=== PATIENT | male | born 1985 | race Caucasian/White ===

== ENCOUNTER 2016-06-22 11:03 | Inpatient (IN) | payer OTHER ==
[~2016-06-22] VITALS: Ht 188 cm; Wt 109.1 kg
[2016-06-22 11:46] LABS: MEAN CORPUSCULAR HEMOGLOBIN 28.9 pg (27.0-33.0); MEAN CORPUSCULAR HGB CONC 35.4 g/dl (32.0-36.5); MEAN CORPUSCULAR VOLUME 81.6 fl (80.0-96.0); RED CELL DISTRIBUTION WIDTH 13.4 % (11.5-14.5); WHITE BLOOD COUNT 4.9 K/mm3 (4.0-10.0)
[2016-06-22 12:04] LABS: CONTROL LINE INT CTR LINE PRESENT; METHADONE URINE NEGATIVE (NEGATIVE); TRICYCLIC ANTIDEPRESS URINE NEGATIVE (NEGATIVE)
[2016-06-22 12:14] LABS: ALBUMIN 4.3 GM/DL (3.2-5.2); ALKALINE PHOSPHATASE 78 U/L (45-117); ALT/SGPT 30 U/L (12-78); ANION GAP 10 MEQ/L (8-16); AST/SGOT 22 U/L (15-37); BILIRUBIN,DIRECT 0.1 MG/DL (0.0-0.2); BILIRUBIN,TOTAL 0.6 MG/DL (0.2-1.0); BLOOD UREA NITROGEN 11 MG/DL (7-18); CALCIUM LEVEL 8.5 MG/DL (8.5-10.1); CARBON DIOXIDE LEVEL 26 MEQ/L (21-32); CHLORIDE LEVEL 105 MEQ/L (98-107); CREATININE FOR GFR 1.21 MG/DL (0.70-1.30); GLOMERULAR FILTRATION RATE > 60.0 (>60); GLUCOSE, FASTING 106 MG/DL (70-105); POTASSIUM SERUM 3.9 MEQ/L (3.5-5.1); SODIUM LEVEL 141 MEQ/L (136-145); TOTAL PROTEIN 7.6 GM/DL (6.4-8.2)
--- NOTE | 2016-06-22 15:31 | EDDOCDS ---
Nurse's Notes [facility] Name: Chidi Dawkins Age: 31 yrs Sex: Male : 1985 Arrival Date: 06/22/2016 Time: 11:03 Bed [facility] Private MD: TOM MILLER Diagnosis: Major depressive disorder, single episode Presentation: 06/22 11:06 Presenting complaint: Patient states: Suicidal and homicidal thoughts. Mental Health mlb1 Triage Level: Level 2: The patient displays active suicidal ideations. The patient displays active homicidal ideations. Adult Sepsis Screening: The patient does not have new or worsening altered mentation. Patient's respiratory rate is less than 22. Systolic blood pressure is greater than 100. Patient has a qSOFA score of 0- Negative Sepsis Screen. Mental Health Triage Level: Level 2:. Suicide/Homicide risk assessment- The patient admits to and/or has been reported to be having suicidal ideations. The patient admits to and/or has been reported to be having homicidal ideations. The patient reports that he/she has not been admitted to an inpatient mental health facility in the last 30 days. The patient reports that he/she does not have a recent or current history of substance abuse. The patient reports that he/she has no prior history of suicide attempt and/or organized plan. The patient reports that he/she has not experienced a significant life altering event in the last 30 days. The patient reports that he/she lacks adequate social support. Status: The patient is an active duty financial services intern. Transition of care: patient was not received from another setting of care. 11:06 Acuity: NAIF Level 3 mlb1 11:06 Method Of Arrival: Walkin/Carried/Asstd mlb1 Triage Assessment: 11:09 General: Appears in no apparent distress, Behavior is anxious, appropriate for age, mlb1 cooperative. Pain: Denies pain. Pt Declines HIV testing. Neurological: No deficits noted. Historical: - Allergies: Robitussin PE; - Home Meds: 1. none - PMHx: none; - PSHx: lymph node removal; right knee; - Social history: Smoking status: Patient states was never smoker of tobacco. No barriers to communication noted, The patient speaks fluent Swedish, Speaks appropriately for age. - Family history: Not pertinent. - : The pt / caregiver states he / she is not on anticoagulants. Home medication list is obtained from the patient. - Exposure Risk Screening:: None identified. Screenin:29 Screening information is obtained from the patient. Fall risk: No risks identified. me3 Assistance ADL's: requires no assistance with activities of daily living. Abuse/DV Screen: The patient / caregiver reports he/she is: not in a situation that causes fear, pain or injury. Nutritional screening: No deficits noted. Advance Directives: Currently, there is no health care proxy. There is no active DNR order. There is no living will. There is no Power of Analytical Sciences Director. home support is adequate. Assessment: 11:40 General: Appears comfortable, Behavior is cooperative, flat. Respiratory: No deficits me3 noted. Airway is patent Respiratory effort is even, unlabored. 12:28 General: Appears comfortable, Behavior is cooperative, flat. Respiratory: Airway is me3 patent Respiratory effort is even, unlabored. Derm: Skin is pink, warm & dry. 13:20 General: Appears in no apparent distress, comfortable, Behavior is appropriate for age, me3 cooperative. Respiratory: No deficits noted. Airway is patent Respiratory effort is even, unlabored. Derm: Skin is pink, warm & dry. 14:41 General: Appears in no apparent distress, comfortable, Behavior is appropriate for age, me3 cooperative. Respiratory: No deficits noted. Airway is patent Respiratory effort is even, unlabored. Derm: Skin is pink, warm & dry. 15:28 General: Appears in no apparent distress, comfortable, Behavior is cooperative, flat. me3 Respiratory: No deficits noted. Airway is patent Respiratory effort is even, unlabored. Derm: Skin is pink, warm & dry. Mental Health Eval: 11:49 Mental health consult is initiated at 11:49. Status: The patient is an active ca duty financial services intern. 12:33 Referral Information: Evaluation referral is generated by the patient himself / ca herself. The patient was referred for evaluation because Pt reports feeling out of control, overwhelmed, problems with anger, SI/HI. Subjective: The patients chief complaint is Pt says he has an overwhelming number of stressors that have been building up for years, but much worse now. Pt is concerned he may hurt someone and himself, so brought self in the be seen today.. Delusions are denied. Patient's mood is anxious, depressed, hopeless, Hallucinations are denied. Pt is active duty, been in the for 14 years. He has never been admitted to psychiatric unit and has not had psych services. He is not taking medication. Hx of several deployments to both [place] and [place], ending in 2009. He is and has 2 children. Pt says everything has been getting on his nerves to the pint where he feels like exploding and afraid he might harm someone. When asked whether he has a suicidal plan pt states "It is very easy to kill yourself." Pt suffers from insomnia, poor appetite, anxiety. Mental Health history: depression, sleep disturbance, Mental Health Admissions: None. Current Outpatient Mental Health Services: None. Current living environment is Family / Home Support: supportive environment The patient currently lives with his / her spouse, . Patient presents to Emergency Department with the following symptoms within the past 2 weeks: agitation, anger, anxiety, depressed mood, feelings of helplessness/hopelessness, marital problem, poor concentration, relational problem, sleep disturbance - insomnia, suicidal ideation with no plan. Substance abuse: Pt denies. Mental status exam: Patients appearance is appropriate, Patient's behavior is cooperative, Speech is normal. Affect is appropriate. Mood is anxious. depressed. irritable. Hallucinations are denied. Appetite is poor. Memory is fair. Energy level is normal. Content of thought is depressive Thought process is intact. Cognitive level is oriented to person, place, time and situation Patient's insight is fair. Judgement is fair. Rapport with interviewer is guarded. Suicidal Ideation is present with no specific plan. Homicidal ideation is present without a specific plan. Pt states HI toward people in general due to anger outbursts. Disposition: Medically cleared for disposition by Luis Enrique Robin MD Psychiatric Consult is performed by phone with Dr Moisés Salazar MD. [facility] Admission Criteria: The patient is experiencing suicidal ideation. The patient displays homicidal ideation. The patient displays symptoms of severe psychiatric disorder resulting in disordered behavior and significant interference with his / her ability to maintain self care. Severe Anxiety. The patient requires continuous observation and/or control to protect self, others or property. The patient's care requires a multi-modal treatment plan under close supervision and coordination due to the complexity and severity of the patient's symptoms. Legal Status: Patient's legal status will be Emergency admission: [place] Safe Act: [place] Safe Act is applicable to this patient. The patient poses a risk to self or other and the Nursing Department Clinician has been notified. He/She will enter the patient's data. DSM-V Differential Diagnosis: Unspecified Depressive Disorder (F32.9). Insurance Pre-Certification: Not Required, Pt has . Awaiting: transfer to [facility]. Vital Signs: 11:05 BP 153 / 97; Pulse 74; Resp 16; Temp 97.1(O); Pulse Ox 97% ; Weight 109.32 kg (R); cmb Height 74 in. (187.96 cm) (R); Pain 0/10; 15:30 BP 138 / 86; Pulse 60; Resp 16; Temp 98; Pulse Ox 98% ; me3 11:05 Body Mass Index 30.94 (109.32 kg, 187.96 cm) cmb Vitals: 11:05 Log In Time: June 22, 2016 at 11:03. RN notified that patient meets Red Flag cmb criteria. ED Course: 11:04 Patient visited by Keri Edmonds. cmb 11:04 Patient moved to Waiting cmb 11:05 [facility], TOM ADAN is Private Physician. cmb 11:06 Patient visited by Jon Macdonald, ROYAL. mlb1 11:07 Triage Initiated mlb1 11:09 Patient visited by Jon Macdonald, ROYAL. mlb1 11:09 Patient moved to [facility] mlb1 11:13 Luis Enrique Robin MD is Attending Physician. br1 11:22 Patient visited by Hany Hatch Security Aide. pjf 11:22 Pt greeted and oriented to ED. Patient advised of names of staff involved in care, pjf location of call matos, wait times and NPO status. Patient has correct armband on for positive identification. Placed in psych safe attire. Bed in low position. Call light in reach. Side rails up X 1. Security observing. Property removed, secured in belongings bag- Placed in locker #3. Door closed. Noise minimized. Visitors limited. Report received from rn - psych. triage level #2, +si / +hi, cooperative \\T\\ this time. The patient / caregiver is instructed regarding the plan of care and ED course. Psych Safety Check: Location:. 11:31 Patient visited by Hany Hatch Security Aide. pjf 11:39 Nury Blackmon LPN is Primary Nurse. me3 11:39 Acetaminophen Level Sent. me3 11:39 Basic Metabolic Profile Sent. me3 11:39 Complete Blood Count Sent. me3 11:39 Drug Eval Toxicology ED Only Sent. me3 11:39 Ethyl Alcohol (ethanol) Sent. me3 11:39 Liver Profile Sent. me3 11:39 Salicylate Level Sent. me3 11:40 Thyroid Stimulating Hormone Sent. me3 11:40 Labs drawn. (by ED staff). Sent per order to lab. Urine collected. Clean catch me3 specimen. Urine specimen sent to lab. 11:42 Patient visited by Hany Hatch Security Aide. pjf 11:57 Patient visited by Hany Hatch Security Aide. pjf 12:04 Patient visited by Luis Enrique Robin MD. br1 12:27 Patient visited by Nury Blackmon LPN. me3 12:43 [facility] Payment Agreement was scanned into [employer] and attached to record. lg 12:47 Patient visited by Hany Hatch Security Aide. pjf 13:02 Moisés Salazar MD is Hospitalizing Provider. br1 13:04 Patient visited by Hany Hatch Security Aide. pjf 13:15 Patient visited by Hany Hatch Security Aide. pjf 13:19 E Legal paperwork was scanned into [employer] and attached to record. ml4 13:20 Diet tray given. Warm blanket given. Pillow given. me3 13:37 Patient visited by Hany Hatch Security Aide. pjf 13:50 Patient visited by Hany Hatch Security Aide. pjf 14:44 Patient visited by Hany Hatch Security Aide. pjf 15:13 Patient visited by Hany Hatch Security Aide. pjf 15:29 No IV's were initiated during this patient's visit. No procedures done that require me3 assistance. Attachments: 13:19 E Legal paperwork ml4 Order Results: Lab Order: Acetaminophen Level; SPEC'M 06/22/16 11:36 Test: ACETAMINOPHEN LEVEL; Value: < 2.0; Range: 10.0-30.0; Abnormal: Below low normal; Units: UG/ML; Status: F Lab Order: Basic Metabolic Profile; SPEC'M 06/22/16 11:36 Test: GLUCOSE, FASTING; Value: 106; Range: 70-105; Abnormal: Above high normal; Units: MG/DL; Status: F Test: BLOOD UREA NITROGEN; Value: 11; Range: 7-18; Units: MG/DL; Status: F Test: CREATININE FOR GFR; Value: 1.21; Range: 0.70-1.30; Units: MG/DL; Status: F Test: GLOMERULAR FILTRATION RATE; Value: > 60.0; Range: >60; Status: F Test: SODIUM LEVEL; Value: 141; Range: 136-145; Units: MEQ/L; Status: F Test: POTASSIUM SERUM; Value: 3.9; Range: 3.5-5.1; Units: MEQ/L; Status: F Test: CHLORIDE LEVEL; Value: 105; Range: 98-107; Units: MEQ/L; Status: F Test: CARBON DIOXIDE LEVEL; Value: 26; Range: 21-32; Units: MEQ/L; Status: F Test: ANION GAP; Value: 10; Range: 8-16; Units: MEQ/L; Status: F Test: CALCIUM LEVEL; Value: 8.5; Range: 8.5-10.1; Units: MG/DL; Status: F Test Note: ; Units are mL/min/1.73 m2 Chronic Kidney Disease Staging per NKF: Stage I & II GFR >=60 Normal to Mildly Decreased Stage III GFR 30-59 Moderately Decreased Stage IV GFR 15-29 Severely Decreased Stage V GFR <15 Very Little GFR Left ESRD GFR <15 on HIDE TANNER Lab Order: Complete Blood Count; SPEC'M 06/22/16 11:36 Test: WHITE BLOOD COUNT; Value: 4.9; Range: 4.0-10.0; Units: K/mm3; Status: F Test: RED BLOOD COUNT; Value: 5.88; Range: 4.30-6.10; Units: M/mm3; Status: F Test: HEMOGLOBIN; Value: 17.0; Range: 14.0-18.0; Units: g/dl; Status: F Test: HEMATOCRIT; Value: 48.0; Range: 42.0-52.0; Units: %; Status: F Test: MEAN CORPUSCULAR VOLUME; Value: 81.6; Range: 80.0-96.0; Units: fl; Status: F Test: MEAN CORPUSCULAR HEMOGLOBIN; Value: 28.9; Range: 27.0-33.0; Units: pg; Status: F Test: MEAN CORPUSCULAR HGB CONC; Value: 35.4; Range: 32.0-36.5; Units: g/dl; Status: F Test: RED CELL DISTRIBUTION WIDTH; Value: 13.4; Range: 11.5-14.5; Units: %; Status: F Test: PLATELET COUNT, AUTOMATED; Value: 215; Range: 150-450; Units: k/mm3; Status: F Lab Order: Drug Eval Toxicology ED Only; SPEC'M 06/22/16 11:37 Test: AMPHETAMINES LEVEL URINE; Value: NEGATIVE; Range: NEGATIVE; Status: F Test: BARBITURATES URINE; Value: NEGATIVE; Range: NEGATIVE; Status: F Test: BENZODIAZEPINES URINE; Value: NEGATIVE; Range: NEGATIVE; Status: F Test: CANNABINOIDS URINE; Value: NEGATIVE; Range: NEGATIVE; Status: F Test: COCAINE METABOLITE URINE; Value: NEGATIVE; Range: NEGATIVE; Status: F Test: METHADONE URINE; Value: NEGATIVE; Range: NEGATIVE; Status: F Test: OPIATES URINE; Value: NEGATIVE; Range: NEGATIVE; Status: F Test: TRICYCLIC ANTIDEPRESS URINE; Value: NEGATIVE; Range: NEGATIVE; Status: F Test Note: ; ALL PRESUMPTIVE POSITIVE FINDINGS ARE UNCONFIRMED NORMAL VALUES THRESHOLD IN NG/ML AMPHETAMINES 1000 METHAMPHETAMINES 1000 BARBITURATES 300 BENZODIAZEPINES 300 CANNABINOIDS (THC) 50 COCAINE METABOLITE 300 METHADONE 300 OPIATES 300 PHENCYCLIDINE 25 TRICYCLIC ANTIDEPRESSANTS 1000 RESULTS ARE FOR MEDICAL PURPOSES ONLY. ALL URINE SPECIMENS WILL BE SAVED FOR 3 DAYS. IF CONFIRMATION OF A PRESUMPTIVE POSTIVE SCREEN RESULT IS DESIRED, CALL CHEMISTRY ([phone]) AND REQUEST URINE TO BE SENT TO REFERENCE LAB. FOR A LIST OF CLOSELY RELATED COMPOUNDS PLEASE CALL THE LAB. Lab Order: Ethyl Alcohol (ethanol); SPEC'M 06/22/16 11:36 Test: ETHYL ALCOHOL (ETHANOL); Value: < 0.003; Range: 0.000-0.010; Units: %; Status: F Lab Order: Liver Profile; SPEC'M 06/22/16 11:36 Test: AST/SGOT; Value: 22; Range: 15-37; Units: U/L; Status: F Test: ALT/SGPT; Value: 30; Range: 12-78; Units: U/L; Status: F Test: ALKALINE PHOSPHATASE; Value: 78; Range: 45-117; Units: U/L; Status: F Test: BILIRUBIN,TOTAL; Value: 0.6; Range: 0.2-1.0; Units: MG/DL; Status: F Test: BILIRUBIN,DIRECT; Value: 0.1; Range: 0.0-0.2; Units: MG/DL; Status: F Test: TOTAL PROTEIN; Value: 7.6; Range: 6.4-8.2; Units: GM/DL; Status: F Test: ALBUMIN; Value: 4.3; Range: 3.2-5.2; Units: GM/DL; Status: F Test: ALBUMIN/GLOBULIN RATIO; Value: 1.30; Range: 1.00-1.93; Status: F Lab Order: Salicylate Level; SPEC'M 06/22/16 11:36 Test: SALICYLATE LEVEL; Value: < 1.7; Range: 5.0-30.0; Abnormal: Below low normal; Units: MG/DL; Status: F Lab Order: Thyroid Stimulating Hormone; SPEC'M 06/22/16 11:36 Test: THYROID STIMULATING HORMONE; Value: 1.680; Range: 0.358-3.740; Units: uIU/ML; Status: F Outcome: 13:03 Decision to Hospitalize by Provider. br1 15:29 Discharge Assessment: patient administered narcotics - no. The following High Risk me3 Discharge criteria are identified: None. Admitted to Psych accompanied by tech, via wheelchair, with chart. Condition: stable. No special radiology studies were completed. Property :Personal belongings accompany Pt. 15:30 Patient left the ED. me3 Signatures: Leann Hutton, PSA PSA ca Sadiq Braxton, Reg Reg lg Hany Hatch, Security Aide GissellepJon Landeros RN RN mlb1 Nury Blackmon,GROUNDWATER PROGRAMS DIRECTOR GROUNDWATER PROGRAMS DIRECTOR me3 Cinda Ken, PSA PSA ml4 Luis Enrique Robin MD MD br1 Keri Edmonds HARID
--- NOTE | 2016-06-22 15:31 | EDDOCDS ---
Physician Documentation [facility] Name: Chidi Dawkins Age: 31 yrs Sex: Male : 1985 Arrival Date: 06/22/2016 Time: 11:03 Bed [facility] Private MD: MITOM FORD Disposition: 06/22/16 13:03 Hospitalization ordered by Moisés Salazar for Inpatient Admission. Preliminary diagnosis is Major depressive disorder, single episode. - Bed requested for Admit. - Status is Inpatient Admission. me3 - Condition is Stable. - Problem is new. - Symptoms are unchanged. Historical: - Allergies: Robitussin PE; - Home Meds: 1. none - PMHx: none; - PSHx: lymph node removal; right knee; - Social history: Smoking status: Patient states was never smoker of tobacco. No barriers to communication noted, The patient speaks fluent Frisian, Speaks appropriately for age. - Family history: Not pertinent. - : The pt / caregiver states he / she is not on anticoagulants. Home medication list is obtained from the patient. - Exposure Risk Screening:: None identified. Vital Signs: 06/22 11:05 BP 153 / 97; Pulse 74; Resp 16; Temp 97.1(O); Pulse Ox 97% ; Weight 109.32 kg / 241.01 cmb lbs (R); Height 74 in. (187.96 cm) (R); Pain 0/10; 15:30 BP 138 / 86; Pulse 60; Resp 16; Temp 98; Pulse Ox 98% ; me3 11:05 Body Mass Index 30.94 (109.32 kg, 187.96 cm) cmb MDM: 11:13 Consult PFS/PSA/Data Compiler ordered. br1 11:13 Consult PFS/PSA/Data Compiler: Patient's case requires discussion with on-call br1 Psychiatrist ordered. 11:13 PSA/PFS to call Nursing Surface Ship Usw Supervisor, to enter patient data on [place] Safe Act if patient br1 involuntarily admitted or transferred for SI or HI ordered. 11:13 Confirm accurate psychiatric medication list and times of last dosage ordered. br1 11:13 Detain Pt Until Medically/PFS Cleared ordered. br1 11:14 Acetaminophen Level Ordered. EDMS 11:14 Basic Metabolic Profile Ordered. EDMS 11:14 Complete Blood Count Ordered. EDMS 11:14 Drug Eval Toxicology ED Only Ordered. EDMS 11:14 Ethyl Alcohol (ethanol) Ordered. EDMS 11:14 Liver Profile Ordered. EDMS 11:14 Salicylate Level Ordered. EDMS 11:14 Thyroid Stimulating Hormone Ordered. EDMS 11:43 REGULAR DIET PLASTIC CHAMORRO+DIET ordered. EDMS 12:22 Consult PFS/PSA/Data Compiler complete. ca 12:22 Consult PFS/PSA/Data Compiler: Patient's case requires discussion with on-call ca Psychiatrist complete. 12:22 PSA/PFS to call Nursing Surface Ship Usw Supervisor, to enter patient data [place] Safe [place] if patient ca involuntarily admitted or transferred for SI or HI complete. 12:38 Financial registration complete. lg 12:43 [facility] Payment Agreement was scanned into [employer] and attached to record. lg 12:59 BED REQUEST+ADM ordered. EDMS 13:01 Acetaminophen Level Reviewed. br1 13:01 Basic Metabolic Profile Reviewed. br1 13:01 Salicylate Level Reviewed. br1 13:01 Complete Blood Count Reviewed. br1 13:01 Drug Eval Toxicology ED Only Reviewed. br1 13:01 Ethyl Alcohol (ethanol) Reviewed. br1 13:01 Liver Profile Reviewed. br1 13:01 Thyroid Stimulating Hormone Reviewed. br1 13:02 Consult PFS/PSA/Socail Worker: Cleared medically for eval ordered. br1 13:08 Consult PFS/PSA/Socail Worker: Cleared medically for eval complete. me3 13:09 Admit to [facility]: ordered. EDMS 13:10 REGULAR DIET ordered. EDMS 13:19 [facility] Legal paperwork was scanned into [employer] and attached to record. ml4 Signatures: Dispatcher [employer] EDMS Leann Hutton, PSA PSA ca Sadiq Braxton, Reg Reg lg Jon Macdonald RN RN mlb1 Nury Blackmon,KNITTING MACHINE MECHANIC KNITTING MACHINE MECHANIC me3 Cinda Ken, PSA PSA ml4 Luis Enrique Robin MD MD br1 The chart was reviewed and I authenticate all verbal orders and agree with the evaluation and treatment provided.Attachments: 12:43 [facility] Payment Agreement lg MTDD
[2016-06-22 15:59] VITALS: BP 134/84
[2016-06-22] MEDS ORDERED: MAALOX 30 ML SUSP *UDC PO PRN (21:30)
[2016-06-22] MEDS ORDERED: ACETAMINOPHEN TAB 650MG DOSE (2X325MG) PO PRN (21:30)
[2016-06-22] MEDS ORDERED: traZODone 50 MG TAB PO PRN (21:30)
[2016-06-22] MEDS ORDERED: MOM 30ML SUSPENSION UDC PO PRN (21:30)
[2016-06-23 06:44] VITALS: BP 145/65
--- NOTE | 2016-06-23 14:46 | HPEPDOC ---
[facility] History & Physical History and Physical DATE OF ADMISSION: Jun 22, 2016 at 15:40 CHIEF COMPLAINT: SI and HI to no one in particular. 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 Patient reports stressors involving the move and issues associated with his move from his previous base in [place] to his current assignment on [facility]. Patient reports in particular the financial costs of the move were unexpected and he and his "bleed through our savings". Patient reports also the was slow in setting his family up with [facility] care/medical care. Patient reports his expressed discord with the will ultimately get him kicked out of the . Patient also reports recurrent vertigo. He reports being diagnosed with Meniere' s and was instructed to discuss his vertigo symptoms with the unit PA. Patient acknowledged understanding. On interview, patient is noticeably depressed. He reports significant anxiety. Patient reports fair sleep and appetite. He reports his vertigo keeps him isolated to his room. He initially declined initiation of an antidepressant, but is amenable to discussing antidepressant therapy with his provider starting tomorrow. Patient denies current SI/HI and AH/VH. PAST PSYCHIATRIC HISTORY: Prior Psychiatric Disorder: Anxiety and depression Outpatient Treatment: [facility]. Suicidal/Self injurious: Denies any hx of suicidal behaviors. Psychotropic Medication History: naive ALLERGIES: ETHANOL, GUAIFENESIN. SOCIAL HISTORY: He is a soldier currently stationed at [employer]. He has two children. Ethyl alcohol (EtOH) none. Smokes none. Recreational drug use none. PAST MEDICAL HISTORY: He has had an extensive workup in [facility] for vertigo. He has seen neurology, it software engineer, otolaryngology (ENT). He has had numerous kinds of tests. He gets vertigo and he gets the feeling that the room is still spinning and his eyes are not catching up. He currently has a referral in process for second opinion ENT in this area. He is not sure if it will be for local or [place]. Other than that he had no medical issues. PAST SURGICAL HISTORY: 1. Lymph node removal. 2. Repair of meniscus right knee. HOME MEDICATIONS: None. VITALS: SEE BELOW. LABS: SEE BELOW. MENTAL STATUS EXAMINATION: Patient is a 31yo male, who is in mod distress due to reported vertigo symptoms , he though is cooperative and engaged in the interview, well kempt, mod build. Speech: [normal] in rate, volume, and articulation, and is [coherent] and [ spontaneous]. Language skills are [intact]. Thought processes: [Clear/Goal directed]. Thought content: [logical]. Description of abnormal or psychotic thoughts: [No hallucinations, delusions, preoccupation with violence, no current homicidal or suicidal ideation, or obsessions]. Judgment: [fair]. Insight:fair. Orientation to [time, place and person]. Recent and remote memory: [intact] Attention span and concentration: good. Language: [Normal]. Fund of knowledge: good]. Mood: dysthymic Affect: dysthymic PROBLEM LIST: 1. Depresison 2. Anxiety 3. SI And HI ASSESSMENT: [Depressive d/o, unspecified] INITIAL TREATMENT PLAN: 1. Patient was admitted on a [9.39] legal status. 2. Complete history was obtained. 3. With patients permission, family will be contacted and database will be expanded. 4. Patient currently declines initiation of an antidepressant, but is open to discussing with his provider starting tomorrow. 5. Patient will be provided with protected environment. 6. Patient will be treated with individual, group, and milieu therapies. 7. Patient will receive supportive psych-education. 8. Discharge planning will commence immediately. 9. Outpatient follow-up treatment will be strongly recommended. ESTIMATED LENGTH OF STAY: [3]-[5] DAYS. TIME SPENT COUNSELING AND COORDINATING INITIAL CARE: [60] minutes. Medications No Active Prescriptions or Reported Meds Allergies Coded Allergies: Ethanol (Unverified Allergy, Unknown, HIVES, 06/22/16) Guaifenesin (Unverified Allergy, Unknown, HIVES, 06/22/16) JONNIE DOYLE MD Jun 23, 2016 14:46 JONNIE DOYLE MD Jun 23, 2016 14:46
[2016-06-23 18:00] VITALS: BP 146/88
--- NOTE | 2016-06-24 03:31 | HPE ---
DATE OF ADMISSION: 06/22/2016 HISTORY OF PRESENT ILLNESS: Please refer to psychiatric history and evaluation for further details on this admission. This examination and history is intended for medical issues, which may need treatment, followup or consult on this 31-year-old male. ALLERGIES: ETHANOL, GUAIFENESIN. 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 Ethyl alcohol (EtOH) none. Smokes none. Recreational drug use none. PAST MEDICAL HISTORY: He has had an extensive workup in [facility] for vertigo. He has seen neurology, circular saw filer, otolaryngology (ENT). He has had numerous kinds of tests. He gets vertigo and he gets the feeling that the room is still spinning and his eyes are not catching up. He currently has a referral in process for second opinion ENT in this area. He is not sure if it will be for local or [place]. Other than that he had no medical issues. PAST SURGICAL HISTORY: 1. Lymph node removal. 2. Repair of meniscus right knee. HOME MEDICATIONS: None. LABORATORY STUDIES: CBC was normal. Electrolytes were normal. BUN and creatinine were 11 and 1.21. Toxicology screen was negative. REVIEW OF SYSTEMS: 10-system review was unremarkable other than his vertigo problem for which he has been on numerous medications with no improvement. OBJECTIVE: 31-year-old cooperative male in no acute distress. Height 74 inches, weight 109 kg, body mass index (BMI) 30.9. Blood pressure 140/60, pulse 52, respirations 18, temperature 96.5. Pupils equal and react to light. Extraocular muscles intact. Cornea and sclerae clear. Conjunctivae were normal. No facial asymmetry. Pharynx, tongue and gums pink and moist. Tongue is midline. Neck is supple without lymphadenopathy. No thyromegaly, no goiter. Carotids 2+ without bruit. Chest clear to auscultation without wheeze or retraction. Heart is regular. Abdomen is benign. Bowel sounds positive. Genitourinary/rectal: Not done. Extremities: No cyanosis, clubbing or edema. Gait steady. Negative Romberg. Cranial nerves III-XII grossly intact. IMPRESSION/PLAN: 1. Psychiatric plan per psychiatry. 2. Further workup for vertigo, has been referred for ENT as an outpatient. No other acute medical issues.
[2016-06-24 06:40] VITALS: BP 142/79
--- NOTE | 2016-06-24 16:31 | EDDOCDS ---
Physician Documentation [facility] Name: Chidi Dawkins Age: 31 yrs Sex: Male : 1985 Arrival Date: 06/22/2016 Time: 11:03 Bed [facility] Private MD: WYTOM FORD Disposition: 06/22/16 13:03 Hospitalization ordered by Moisés Salazar for Inpatient Admission. Preliminary diagnosis is Major depressive disorder, single episode. - Bed requested for Admit. - Status is Inpatient Admission. me3 - Condition is Stable. - Problem is new. - Symptoms are unchanged. Historical: - Allergies: Robitussin PE; - Home Meds: 1. none - PMHx: none; - PSHx: lymph node removal; right knee; - Social history: Smoking status: Patient states was never smoker of tobacco. No barriers to communication noted, The patient speaks fluent Latvian, Speaks appropriately for age. - Family history: Not pertinent. - : The pt / caregiver states he / she is not on anticoagulants. Home medication list is obtained from the patient. - Exposure Risk Screening:: None identified. Vital Signs: 06/22 11:05 BP 153 / 97; Pulse 74; Resp 16; Temp 97.1(O); Pulse Ox 97% ; Weight 109.32 kg / 241.01 cmb lbs (R); Height 74 in. (187.96 cm) (R); Pain 0/10; 15:30 BP 138 / 86; Pulse 60; Resp 16; Temp 98; Pulse Ox 98% ; me3 11:05 Body Mass Index 30.94 (109.32 kg, 187.96 cm) cmb MDM: 11:13 Consult PFS/PSA/Labor Conciliator ordered. br1 11:13 Consult PFS/PSA/Labor Conciliator: Patient's case requires discussion with on-call br1 Psychiatrist ordered. 11:13 PSA/PFS to call Nursing Mri Special Procedures Technologist, to enter patient data on [place] Safe [place] if patient br1 involuntarily admitted or transferred for SI or HI ordered. 11:13 Confirm accurate psychiatric medication list and times of last dosage ordered. br1 11:13 Detain Pt Until Medically/PFS Cleared ordered. br1 11:14 Acetaminophen Level Ordered. EDMS 11:14 Basic Metabolic Profile Ordered. EDMS 11:14 Complete Blood Count Ordered. EDMS 11:14 Drug Eval Toxicology ED Only Ordered. EDMS 11:14 Ethyl Alcohol (ethanol) Ordered. EDMS 11:14 Liver Profile Ordered. EDMS 11:14 Salicylate Level Ordered. EDMS 11:14 Thyroid Stimulating Hormone Ordered. EDMS 11:43 REGULAR DIET PLASTIC CHAMORRO+DIET ordered. EDMS 12:22 Consult PFS/PSA/Labor Conciliator complete. ca 12:22 Consult PFS/PSA/Labor Conciliator: Patient's case requires discussion with on-call ca Psychiatrist complete. 12:22 PSA/PFS to call Nursing Mri Special Procedures Technologist, to enter patient data [place] if patient ca involuntarily admitted or transferred for SI or HI complete. 12:38 Financial registration complete. lg 12:43 [facility] Payment Agreement was scanned into [employer] and attached to record. lg 12:59 BED REQUEST+ADM ordered. EDMS 13:01 Acetaminophen Level Reviewed. br1 13:01 Basic Metabolic Profile Reviewed. br1 13:01 Salicylate Level Reviewed. br1 13:01 Complete Blood Count Reviewed. br1 13:01 Drug Eval Toxicology ED Only Reviewed. br1 13:01 Ethyl Alcohol (ethanol) Reviewed. br1 13:01 Liver Profile Reviewed. br1 13:01 Thyroid Stimulating Hormone Reviewed. br1 13:02 Consult PFS/PSA/Socail Worker: Cleared medically for eval ordered. br1 13:08 Consult PFS/PSA/Socail Worker: Cleared medically for eval complete. me3 13:09 Admit to [facility]: ordered. EDMS 13:10 REGULAR DIET ordered. EDMS 13:19 [facility] Legal paperwork was scanned into [employer] and attached to record. ml4 17:16 T-Sheet-- Draft Copy was scanned into [employer] and attached to record. klr Signatures: Dispatcher [employer] EDMS Brennen, Leann, PSA PSA ca Sadiq Braxton, Reg Reg lg Jon Macdonald RN RN mlb1 Nury Blackmon LPN GENERAL SURGEON me3 Cinda Ken, PSA PSA ml4 Luis Enrique Robin MD MD br1 Nini Tser The chart was reviewed and I authenticate all verbal orders and agree with the evaluation and treatment provided.Attachments: 12:43 [facility] Payment Agreement lg 17:16 T-Sheet-- Draft Copy klr Chart Complete MTDD
--- NOTE | 2016-06-24 16:31 | EDDOCDS ---
Physician Documentation [facility] Name: Chidi Dawkins Age: 31 yrs Sex: Male : 1985 Arrival Date: 06/22/2016 Time: 11:03 Bed [facility] Private MD: NMTOM FORD Disposition: 06/22/16 13:03 Hospitalization ordered by Moisés Salazar for Inpatient Admission. Preliminary diagnosis is Major depressive disorder, single episode. - Bed requested for Admit. - Status is Inpatient Admission. me3 - Condition is Stable. - Problem is new. - Symptoms are unchanged. Historical: - Allergies: Robitussin PE; - Home Meds: 1. none - PMHx: none; - PSHx: lymph node removal; right knee; - Social history: Smoking status: Patient states was never smoker of tobacco. No barriers to communication noted, The patient speaks fluent Polish, Speaks appropriately for age. - Family history: Not pertinent. - : The pt / caregiver states he / she is not on anticoagulants. Home medication list is obtained from the patient. - Exposure Risk Screening:: None identified. Vital Signs: 06/22 11:05 BP 153 / 97; Pulse 74; Resp 16; Temp 97.1(O); Pulse Ox 97% ; Weight 109.32 kg / 241.01 cmb lbs (R); Height 74 in. (187.96 cm) (R); Pain 0/10; 15:30 BP 138 / 86; Pulse 60; Resp 16; Temp 98; Pulse Ox 98% ; me3 11:05 Body Mass Index 30.94 (109.32 kg, 187.96 cm) cmb MDM: 11:13 Consult PFS/PSA/Dietician ordered. br1 11:13 Consult PFS/PSA/Dietician: Patient's case requires discussion with on-call br1 Psychiatrist ordered. 11:13 PSA/PFS to call Nursing Brickmason Helper, to [place] data [place] if patient br1 involuntarily admitted or transferred for SI or HI ordered. 11:13 Confirm accurate psychiatric medication list and times of last dosage ordered. br1 11:13 Detain Pt Until Medically/PFS Cleared ordered. br1 11:14 Acetaminophen Level Ordered. EDMS 11:14 Basic Metabolic Profile Ordered. EDMS 11:14 Complete Blood Count Ordered. EDMS 11:14 Drug Eval Toxicology ED Only Ordered. EDMS 11:14 Ethyl Alcohol (ethanol) Ordered. EDMS 11:14 Liver Profile Ordered. EDMS 11:14 Salicylate Level Ordered. EDMS 11:14 Thyroid Stimulating Hormone Ordered. EDMS 11:43 REGULAR DIET PLASTIC CHAMORRO+DIET ordered. EDMS 12:22 Consult PFS/PSA/Dietician complete. ca 12:22 Consult PFS/PSA/Dietician: Patient's case requires discussion with on-call ca Psychiatrist complete. 12:22 PSA/PFS to call Nursing Brickmason Helper, to [place] if patient ca involuntarily admitted or transferred for SI or HI complete. 12:38 Financial registration complete. lg 12:43 [facility] Payment Agreement was scanned into [employer] and attached to record. lg 12:59 BED REQUEST+ADM ordered. EDMS 13:01 Acetaminophen Level Reviewed. br1 13:01 Basic Metabolic Profile Reviewed. br1 13:01 Salicylate Level Reviewed. br1 13:01 Complete Blood Count Reviewed. br1 13:01 Drug Eval Toxicology ED Only Reviewed. br1 13:01 Ethyl Alcohol (ethanol) Reviewed. br1 13:01 Liver Profile Reviewed. br1 13:01 Thyroid Stimulating Hormone Reviewed. br1 13:02 Consult PFS/PSA/Socail Worker: Cleared medically for eval ordered. br1 13:08 Consult PFS/PSA/Socail Worker: Cleared medically for eval complete. me3 13:09 Admit to [facility]: ordered. EDMS 13:10 REGULAR DIET ordered. EDMS 13:19 [facility] Legal paperwork was scanned into [employer] and attached to record. ml4 17:16 T-Sheet-- Draft Copy was scanned into [employer] and attached to record. klr Signatures: Dispatcher [employer] EDMS Brennen, Leann, PSA PSA ca Sadiq Braxton, Reg Reg lg Jon Macdonald RN RN mlb1 Nury Blackmon LPN LIBRARY SALES CONSULTANT me3 Cinda Ken, PSA PSA ml4 Luis Enrique Robin MD MD br1 Nini Tser The chart was reviewed and I authenticate all verbal orders and agree with the evaluation and treatment provided.Attachments: 12:43 [facility] Payment Agreement lg 17:16 T-Sheet-- Draft Copy klr Chart Complete MTDD
--- NOTE | 2016-06-24 16:31 | EDDOCDS ---
Nurse's Notes [facility] Name: Chidi Dawkins Age: 31 yrs Sex: Male : 1985 Arrival Date: 06/22/2016 Time: 11:03 Bed [facility] Private MD: TOM MILLER Diagnosis: Major depressive disorder, single episode Presentation: 06/22 11:06 Presenting complaint: Patient states: Suicidal and homicidal thoughts. Mental Health mlb1 Triage Level: Level 2: The patient displays active suicidal ideations. The patient displays active homicidal ideations. Adult Sepsis Screening: The patient does not have new or worsening altered mentation. Patient's respiratory rate is less than 22. Systolic blood pressure is greater than 100. Patient has a qSOFA score of 0- Negative Sepsis Screen. Mental Health Triage Level: Level 2:. Suicide/Homicide risk assessment- The patient admits to and/or has been reported to be having suicidal ideations. The patient admits to and/or has been reported to be having homicidal ideations. The patient reports that he/she has not been admitted to an inpatient mental health facility in the last 30 days. The patient reports that he/she does not have a recent or current history of substance abuse. The patient reports that he/she has no prior history of suicide attempt and/or organized plan. The patient reports that he/she has not experienced a significant life altering event in the last 30 days. The patient reports that he/she lacks adequate social support. Status: The patient is an active duty installation service representative. Transition of care: patient was not received from another setting of care. 11:06 Acuity: NAIF Level 3 mlb1 11:06 Method Of Arrival: Walkin/Carried/Asstd mlb1 Triage Assessment: 11:09 General: Appears in no apparent distress, Behavior is anxious, appropriate for age, mlb1 cooperative. Pain: Denies pain. Pt Declines HIV testing. Neurological: No deficits noted. Historical: - Allergies: Robitussin PE; - Home Meds: 1. none - PMHx: none; - PSHx: lymph node removal; right knee; - Social history: Smoking status: Patient states was never smoker of tobacco. No barriers to communication noted, The patient speaks fluent Korean, Speaks appropriately for age. - Family history: Not pertinent. - : The pt / caregiver states he / she is not on anticoagulants. Home medication list is obtained from the patient. - Exposure Risk Screening:: None identified. Screenin:29 Screening information is obtained from the patient. Fall risk: No risks identified. me3 Assistance ADL's: requires no assistance with activities of daily living. Abuse/DV Screen: The patient / caregiver reports he/she is: not in a situation that causes fear, pain or injury. Nutritional screening: No deficits noted. Advance Directives: Currently, there is no health care proxy. There is no active DNR order. There is no living will. There is no Power of Radiographer Mammographer. home support is adequate. Assessment: 11:40 General: Appears comfortable, Behavior is cooperative, flat. Respiratory: No deficits me3 noted. Airway is patent Respiratory effort is even, unlabored. 12:28 General: Appears comfortable, Behavior is cooperative, flat. Respiratory: Airway is me3 patent Respiratory effort is even, unlabored. Derm: Skin is pink, warm & dry. 13:20 General: Appears in no apparent distress, comfortable, Behavior is appropriate for age, me3 cooperative. Respiratory: No deficits noted. Airway is patent Respiratory effort is even, unlabored. Derm: Skin is pink, warm & dry. 14:41 General: Appears in no apparent distress, comfortable, Behavior is appropriate for age, me3 cooperative. Respiratory: No deficits noted. Airway is patent Respiratory effort is even, unlabored. Derm: Skin is pink, warm & dry. 15:28 General: Appears in no apparent distress, comfortable, Behavior is cooperative, flat. me3 Respiratory: No deficits noted. Airway is patent Respiratory effort is even, unlabored. Derm: Skin is pink, warm & dry. Mental Health Eval: 11:49 Mental health consult is initiated at 11:49. Status: The patient is an active ca duty installation service representative. 12:33 Referral Information: Evaluation referral is generated by the patient himself / ca herself. The patient was referred for evaluation because Pt reports feeling out of control, overwhelmed, problems with anger, SI/HI. Subjective: The patients chief complaint is Pt says he has an overwhelming number of stressors that have been building up for years, but much worse now. Pt is concerned he may hurt someone and himself, so brought self in the be seen today.. Delusions are denied. Patient's mood is anxious, depressed, hopeless, Hallucinations are denied. Pt is active duty, been in the for 14 years. He has never been admitted to psychiatric unit and has not had psych services. He is not taking medication. Hx of several deployments to both [place] and [place], ending in 2009. He is and has 2 children. Pt says everything has been getting on his nerves to the pint where he feels like exploding and afraid he might harm someone. When asked whether he has a suicidal plan pt states "It is very easy to kill yourself." Pt suffers from insomnia, poor appetite, anxiety. Mental Health history: depression, sleep disturbance, Mental Health Admissions: None. Current Outpatient Mental Health Services: None. Current living environment is Family / Home Support: supportive environment The patient currently lives with his / her spouse, . Patient presents to Emergency Department with the following symptoms within the past 2 weeks: agitation, anger, anxiety, depressed mood, feelings of helplessness/hopelessness, marital problem, poor concentration, relational problem, sleep disturbance - insomnia, suicidal ideation with no plan. Substance abuse: Pt denies. Mental status exam: Patients appearance is appropriate, Patient's behavior is cooperative, Speech is normal. Affect is appropriate. Mood is anxious. depressed. irritable. Hallucinations are denied. Appetite is poor. Memory is fair. Energy level is normal. Content of thought is depressive Thought process is intact. Cognitive level is oriented to person, place, time and situation Patient's insight is fair. Judgement is fair. Rapport with interviewer is guarded. Suicidal Ideation is present with no specific plan. Homicidal ideation is present without a specific plan. Pt states HI toward people in general due to anger outbursts. Disposition: Medically cleared for disposition by Luis Enrique Robin MD Psychiatric Consult is performed by phone with Dr Moisés Salazar MD. [facility] Admission Criteria: The patient is experiencing suicidal ideation. The patient displays homicidal ideation. The patient displays symptoms of severe psychiatric disorder resulting in disordered behavior and significant interference with his / her ability to maintain self care. Severe Anxiety. The patient requires continuous observation and/or control to protect self, others or property. The patient's care requires a multi-modal treatment plan under close supervision and coordination due to the complexity and severity of the patient's symptoms. Legal Status: Patient's legal status will be Emergency admission: [place] Safe Act: [place] Safe Act is applicable to this patient. The patient poses a risk to self or other and the Nursing Checking Clerk has been notified. He/She will enter the patient's data. DSM-V Differential Diagnosis: Unspecified Depressive Disorder (F32.9). Insurance Pre-Certification: Not Required, Pt has . Awaiting: transfer to [facility]. Vital Signs: 11:05 BP 153 / 97; Pulse 74; Resp 16; Temp 97.1(O); Pulse Ox 97% ; Weight 109.32 kg (R); cmb Height 74 in. (187.96 cm) (R); Pain 0/10; 15:30 BP 138 / 86; Pulse 60; Resp 16; Temp 98; Pulse Ox 98% ; me3 11:05 Body Mass Index 30.94 (109.32 kg, 187.96 cm) cmb Vitals: 11:05 Log In Time: June 22, 2016 at 11:03. RN notified that patient meets Red Flag cmb criteria. ED Course: 11:04 Patient visited by Keri Edmonds. cmb 11:04 Patient moved to Waiting cmb 11:05 [facility], TOM ADAN is Private Physician. cmb 11:06 Patient visited by Jon Macdonald, ROYAL. mlb1 11:07 Triage Initiated mlb1 11:09 Patient visited by Jon Macdonald, ROYAL. mlb1 11:09 Patient moved to [facility] mlb1 11:13 Luis Enrique Robin MD is Attending Physician. br1 11:22 Patient visited by Hany Hatch Security Aide. pjf 11:22 Pt greeted and oriented to ED. Patient advised of names of staff involved in care, pjf location of call matos, wait times and NPO status. Patient has correct armband on for positive identification. Placed in psych safe attire. Bed in low position. Call light in reach. Side rails up X 1. Security observing. Property removed, secured in belongings bag- Placed in locker #3. Door closed. Noise minimized. Visitors limited. Report received from rn - psych. triage level #2, +si / +hi, cooperative \\T\\ this time. The patient / caregiver is instructed regarding the plan of care and ED course. Psych Safety Check: Location:. 11:31 Patient visited by Hany Hatch Security Aide. pjf 11:39 Nury Blackmon LPN is Primary Nurse. me3 11:39 Acetaminophen Level Sent. me3 11:39 Basic Metabolic Profile Sent. me3 11:39 Complete Blood Count Sent. me3 11:39 Drug Eval Toxicology ED Only Sent. me3 11:39 Ethyl Alcohol (ethanol) Sent. me3 11:39 Liver Profile Sent. me3 11:39 Salicylate Level Sent. me3 11:40 Thyroid Stimulating Hormone Sent. me3 11:40 Labs drawn. (by ED staff). Sent per order to lab. Urine collected. Clean catch me3 specimen. Urine specimen sent to lab. 11:42 Patient visited by Hany Hatch Security Aide. pjf 11:57 Patient visited by Hany Hatch Security Aide. pjf 12:04 Patient visited by Luis Enrique Robin MD. br1 12:27 Patient visited by Nury Blackmon LPN. me3 12:43 [facility] Payment Agreement was scanned into pic5 and attached to record. lg 12:47 Patient visited by Hany Hatch Security Aide. pjf 13:02 Moisés Salazar MD is Hospitalizing Provider. br1 13:04 Patient visited by Hany Hatch Security Aide. pjf 13:15 Patient visited by Hany Hatch Security Aide. pjf 13:19 E Legal paperwork was scanned into pic5 and attached to record. ml4 13:20 Diet tray given. Warm blanket given. Pillow given. me3 13:37 Patient visited by Hany Hatch Security Aide. pjf 13:50 Patient visited by Hany Hatch Security Aide. pjf 14:44 Patient visited by Hany Hatch Security Aide. pjf 15:13 Patient visited by Hany Hatch Security Aide. pjf 15:29 No IV's were initiated during this patient's visit. No procedures done that require me3 assistance. 17:16 T-Sheet-- Draft Copy was scanned into pic5 and attached to record. klr Attachments: 13:19 MHE Legal paperwork ml4 Order Results: Lab Order: Acetaminophen Level; SPEC'M 06/22/16 11:36 Test: ACETAMINOPHEN LEVEL; Value: < 2.0; Range: 10.0-30.0; Abnormal: Below low normal; Units: UG/ML; Status: F Lab Order: Basic Metabolic Profile; SPEC06/22/16 11:36 Test: GLUCOSE, FASTING; Value: 106; Range: 70-105; Abnormal: Above high normal; Units: MG/DL; Status: F Test: BLOOD UREA NITROGEN; Value: 11; Range: 7-18; Units: MG/DL; Status: F Test: CREATININE FOR GFR; Value: 1.21; Range: 0.70-1.30; Units: MG/DL; Status: F Test: GLOMERULAR FILTRATION RATE; Value: > 60.0; Range: >60; Status: F Test: SODIUM LEVEL; Value: 141; Range: 136-145; Units: MEQ/L; Status: F Test: POTASSIUM SERUM; Value: 3.9; Range: 3.5-5.1; Units: MEQ/L; Status: F Test: CHLORIDE LEVEL; Value: 105; Range: 98-107; Units: MEQ/L; Status: F Test: CARBON DIOXIDE LEVEL; Value: 26; Range: 21-32; Units: MEQ/L; Status: F Test: ANION GAP; Value: 10; Range: 8-16; Units: MEQ/L; Status: F Test: CALCIUM LEVEL; Value: 8.5; Range: 8.5-10.1; Units: MG/DL; Status: F Test Note: ; Units are mL/min/1.73 m2 Chronic Kidney Disease Staging per NKF: Stage I & II GFR >=60 Normal to Mildly Decreased Stage III GFR 30-59 Moderately Decreased Stage IV GFR 15-29 Severely Decreased Stage V GFR <15 Very Little GFR Left ESRD GFR <15 on MEDICAL RECORDS SECRETARY Lab Order: Complete Blood Count; SPEC'M 06/22/16 11:36 Test: WHITE BLOOD COUNT; Value: 4.9; Range: 4.0-10.0; Units: K/mm3; Status: F Test: RED BLOOD COUNT; Value: 5.88; Range: 4.30-6.10; Units: M/mm3; Status: F Test: HEMOGLOBIN; Value: 17.0; Range: 14.0-18.0; Units: g/dl; Status: F Test: HEMATOCRIT; Value: 48.0; Range: 42.0-52.0; Units: %; Status: F Test: MEAN CORPUSCULAR VOLUME; Value: 81.6; Range: 80.0-96.0; Units: fl; Status: F Test: MEAN CORPUSCULAR HEMOGLOBIN; Value: 28.9; Range: 27.0-33.0; Units: pg; Status: F Test: MEAN CORPUSCULAR HGB CONC; Value: 35.4; Range: 32.0-36.5; Units: g/dl; Status: F Test: RED CELL DISTRIBUTION WIDTH; Value: 13.4; Range: 11.5-14.5; Units: %; Status: F Test: PLATELET COUNT, AUTOMATED; Value: 215; Range: 150-450; Units: k/mm3; Status: F Lab Order: Drug Eval Toxicology ED Only; SPEC'M 06/22/16 11:37 Test: AMPHETAMINES LEVEL URINE; Value: NEGATIVE; Range: NEGATIVE; Status: F Test: BARBITURATES URINE; Value: NEGATIVE; Range: NEGATIVE; Status: F Test: BENZODIAZEPINES URINE; Value: NEGATIVE; Range: NEGATIVE; Status: F Test: CANNABINOIDS URINE; Value: NEGATIVE; Range: NEGATIVE; Status: F Test: COCAINE METABOLITE URINE; Value: NEGATIVE; Range: NEGATIVE; Status: F Test: METHADONE URINE; Value: NEGATIVE; Range: NEGATIVE; Status: F Test: OPIATES URINE; Value: NEGATIVE; Range: NEGATIVE; Status: F Test: TRICYCLIC ANTIDEPRESS URINE; Value: NEGATIVE; Range: NEGATIVE; Status: F Test Note: ; ALL PRESUMPTIVE POSITIVE FINDINGS ARE UNCONFIRMED NORMAL VALUES THRESHOLD IN NG/ML AMPHETAMINES 1000 METHAMPHETAMINES 1000 BARBITURATES 300 BENZODIAZEPINES 300 CANNABINOIDS (THC) 50 COCAINE METABOLITE 300 METHADONE 300 OPIATES 300 PHENCYCLIDINE 25 TRICYCLIC ANTIDEPRESSANTS 1000 RESULTS ARE FOR MEDICAL PURPOSES ONLY. ALL URINE SPECIMENS WILL BE SAVED FOR 3 DAYS. IF CONFIRMATION OF A PRESUMPTIVE POSTIVE SCREEN RESULT IS DESIRED, CALL CHEMISTRY ([phone]) AND REQUEST URINE TO BE SENT TO REFERENCE LAB. FOR A LIST OF CLOSELY RELATED COMPOUNDS PLEASE CALL THE LAB. Lab Order: Ethyl Alcohol (ethanol); SPEC'M 06/22/16 11:36 Test: ETHYL ALCOHOL (ETHANOL); Value: < 0.003; Range: 0.000-0.010; Units: %; Status: F Lab Order: Liver Profile; SPEC'M 06/22/16 11:36 Test: AST/SGOT; Value: 22; Range: 15-37; Units: U/L; Status: F Test: ALT/SGPT; Value: 30; Range: 12-78; Units: U/L; Status: F Test: ALKALINE PHOSPHATASE; Value: 78; Range: 45-117; Units: U/L; Status: F Test: BILIRUBIN,TOTAL; Value: 0.6; Range: 0.2-1.0; Units: MG/DL; Status: F Test: BILIRUBIN,DIRECT; Value: 0.1; Range: 0.0-0.2; Units: MG/DL; Status: F Test: TOTAL PROTEIN; Value: 7.6; Range: 6.4-8.2; Units: GM/DL; Status: F Test: ALBUMIN; Value: 4.3; Range: 3.2-5.2; Units: GM/DL; Status: F Test: ALBUMIN/GLOBULIN RATIO; Value: 1.30; Range: 1.00-1.93; Status: F Lab Order: Salicylate Level; SPEC'M 06/22/16 11:36 Test: SALICYLATE LEVEL; Value: < 1.7; Range: 5.0-30.0; Abnormal: Below low normal; Units: MG/DL; Status: F Lab Order: Thyroid Stimulating Hormone; SPEC'M 06/22/16 11:36 Test: THYROID STIMULATING HORMONE; Value: 1.680; Range: 0.358-3.740; Units: uIU/ML; Status: F Outcome: 13:03 Decision to Hospitalize by Provider. br1 15:29 Discharge Assessment: patient administered narcotics - no. The following High Risk me3 Discharge criteria are identified: None. Admitted to Psych accompanied by tech, via wheelchair, with chart. Condition: stable. No special radiology studies were completed. Property :Personal belongings accompany Pt. 15:30 Patient left the ED. me3 Signatures: Brennen, Leann, PSA PSA ca Irais, LorAlissa, Reg Reg lg Holden, Hany, Security Aide Jon Bangura RN RN mlb1 Nury Blackmon LPN PIPE CLEANING MACHINE OPERATOR me3 Cinda Ken, PSA PSA ml4 Luis Enrique Robin MD MD br1 Keri Edmonds Kathie klr Chart Complete MTDD
[2016-06-24 18:00] VITALS: BP 184/88
--- NOTE | 2016-06-24 19:04 | ECGEPIP ---
Stationary ECG Study [facility] Test Date: 2016-06-24 Pat Name: SUSANA VO Department: Room: [place] [id number] Gender: M Large Engine Assembler: IVANA : 1985 Requested By: Libia Zuniga [facility] Order Number: [id number] Reading MD: Cam Jaquez Measurements Intervals [place] Rate: 63 P: 35 IA: 177 QRS: 78 QRSD: 101 T: 39 QT: 390 QTc: 399 Interpretive Statements SINUS RHYTHM Comparison tracing not on file Electronically Signed On 06-24-2016 19:04:23 EST by Cam Jaquez
[2016-06-25 06:42] VITALS: BP 142/84
[2016-06-25 18:00] VITALS: BP 140/90
[2016-06-26 06:40] VITALS: BP 134/82
--- NOTE | 2016-06-26 13:12 | IPN ---
DATE: 06/26/2016 This patient is a 31-year-old male suffering from depression related to some losses in his life. This visit was primarily one to introduce myself to him as his new provider and for my chance to begin to get to know the emotional turmoil that he is suffering. SUBJECTIVE: This patient claims that his dysphoria both anxious and depressive waxes and wanes, but he thinks that he is clearing up and getting better and at this time he denies serious lethal ideation, planning, etc., and he denies psychotic symptomatology. OBJECTIVE: On objective assessment, this patient's mental status is essentially within normal limits. There are no stigmata of a major mood, including miriam and melancholia, psychosis, or cognitive difficulty. The patient does have a long history of a waxing and waning vertigo which he is still undergoing tests for. This may have been related to traumatic injuries, both growing up and later. ASSESSMENT: This patient seems to be responding to the supportive milieu and he seems to benefit from talking. PLAN: Discharge arrangements are being discussed. At this time, I do not consider this patient a serious lethal risk and will delve deeper into this patient's biopsychosocial problems in following visits.
[2016-06-26 18:00] VITALS: BP 147/79
[2016-06-27 06:29] VITALS: BP 142/84
[2016-06-27 18:00] VITALS: BP 138/88
[2016-06-28 07:14] VITALS: BP 136/77
== END 2016-06-28 13:30 | disposition home or self-care (01) | DRG 882 ==
LOC: M ED 11:03 → M PSY 15:39
PROVIDERS: ADMIT Psychiatry & Neurology Psychiatry; ATTEND Psychiatry & Neurology Psychiatry
DX: F43.25 Adjustment disorder with mixed disturbance of emotions and conduct (principal); R42 Dizziness and giddiness; Z88.8 Allergy status to other drugs, medicaments and biological substances